=== PATIENT | male | born 1950 | race Native Hawaiian/Other Pacific Islander ===

== ENCOUNTER 2020-07-29 18:04 | Emergency (ER) | payer OTHER ==
[~2020-07-29] VITALS: Ht 182.9 cm; Wt 87.5 kg
[2020-07-29 18:11] VITALS: BP 123/57; TEMP 98.3
[2020-07-29 18:46] LABS: PLATELET COUNT 128 K/uL (142-355)
[2020-07-29 18:49] LABS: POTASSIUM 3.4 mmol/L (3.6-5.2)
[2020-07-30] MEDS ORDERED: PULMICORT0.5 MG/2 M INH (00:03)
[2020-07-30] MEDS ORDERED: CLOPIDOGREL75 MG PO (00:04)
[2020-07-30] MEDS ORDERED: KP FOLIC ACID1 MG PO (00:05)
[2020-07-30] MEDS ORDERED: ENTRESTO 24-261 TAB PO (00:05)
[2020-07-30] MEDS ORDERED: METO5TAB38 PO (00:06)
[2020-07-30] MEDS ORDERED: EUTHYROX50 MCG PO (00:06)
[2020-07-30] MEDS ORDERED: MISO100T2 PO (00:07)
[2020-07-30] MEDS ORDERED: PANTOPRAZOLE 40MG TA PO (00:08)
[2020-07-30] MEDS ORDERED: ROSU10TA PO (00:09)
[2020-07-30] MEDS ORDERED: SPIRONOLACT25 MG PO (00:10)
== END 2020-07-29 19:45 | disposition other institution (70) ==
LOC: ED 18:04
PROVIDERS: Family Medicine
DX: R46.89 Other symptoms and signs involving appearance and behavior (principal); Z11.59 Encounter for screening for other viral diseases; Z04.6 Encounter for general psychiatric examination, requested by authority
CPT/HCPCS: 36415; 80053; 81000; 85027; 87635; 93005; 99283; U0003